=== PATIENT | female | born 1990 | race Two or more races ===

== ENCOUNTER 2017-11-29 14:23 | Emergency (ER) | payer SELFPAY ==
[~2017-11-29] VITALS: Ht 154.9 cm; Wt 59.9 kg
[2017-11-29 14:30] VITALS: BP 106/68
--- NOTE | 2017-11-29 14:30 | NUR ---
EPIGASTRIC PAIN SINCE SUNDAY. NAD NOTED. PT AAO X4, AMB WITH STEADY GAIT. RR EVEN AND UNLABORED. MIC. AT BEDSIDE FOR EVAL.
[2017-11-29] MEDS ORDERED: FAMOTIDINE (20 MG) 20 MG TABLET ONE (15:11)
[2017-11-29] MEDS ORDERED: MAG HYDROX/AL HYDROX/SIMETH 30 ML UDC ONE (15:11)
[2017-11-29 15:17] LABS: BASOPHILS % (AUTO) 0.3 % (0.0-2.0); EOSINOPHILS % (AUTO) 1.1 % (0.0-6.0); HEMATOCRIT 38 % (33-45); HEMOGLOBIN 13.5 g/dL (11.5-14.8); LYMPHOCYTES # (AUTO) 1.7 /CMM (0.8-4.8); LYMPHOCYTES % (AUTO) 21.6 % (20.0-44.0); MEAN CORPUSCULAR HEMOGLOBIN 33 PG (26.0-33.0); MEAN CORPUSCULAR HGB CONC 36 g/dl (31.0-36.0); MEAN CORPUSCULAR VOLUME 91 fL (82-100); MONOCYTES # (AUTO) 0.5 /CMM (0.1-1.30); MONOCYTES % (AUTO) 6.6 % (2.0-12.0); NEUTROPHILS # (AUTO) 5.6 /CMM (1.8-8.9); NEUTROPHILS % (AUTO) 70.4 % (43.0-81.0); PLATELET COUNT (AUTO) 184 /CMM (150-450); RDW COEFFICIENT OF VARIATION 11.3 (11.5-15.0); RED BLOOD CELL COUNT(AUTO) 4.13 MIL/uL (4.0-5.2); WHITE BLOOD COUNT (AUTO) 7.9 K/uL (4.3-11.0)
[2017-11-29 15:24] LABS: CALCIUM, SERUM 9.3 mg/dL (8.5-10.1); CREATININE 0.7 mg/dL (0.6-1.3); POTASSIUM 4.1 mmol/L (3.5-5.1)
[2017-11-29 15:30] LABS: ALBUMIN 3.7 g/dL (3.4-5.0); BILIRUBIN,DIRECT 0.1 mg/dL (0.0-0.2); BILIRUBIN,TOTAL 0.3 mg/dL (0.2-1.0)
[2017-11-29] MEDS ORDERED: MAG HYDROX/AL HYDROX/SIMETH 30 ML UDC PO ONE (15:30)
[2017-11-29] MEDS ORDERED: FAMOTIDINE (20 MG) 20 MG TABLET PO ONE (15:30)
== END 2017-11-29 15:59 | disposition home or self-care (01) ==
LOC: ER 14:39
DX: R10.13 Epigastric pain (principal)
CPT/HCPCS: 36415; 80048; 80076; 83690; 84703; 85025; 99284; A4606; Z7610

== ENCOUNTER 2017-11-30 05:25 | Emergency (ER) | payer SELFPAY ==
[~2017-11-30] VITALS: Ht 154.9 cm; Wt 59.9 kg
[2017-11-30] MEDS ORDERED: ONDANSETRON HCL/PF 4 MG/2 ML VIAL ONE ×2 (06:16→07:55)
[2017-11-30] MEDS ORDERED: PANTOPRAZOLE 40 MG VIAL ONE (06:16)
[2017-11-30] MEDS ORDERED: MAG HYDROX/AL HYDROX/SIMETH 30 ML UDC ONE (06:16)
--- NOTE | 2017-11-30 06:25 | NUR ---
pt bb mother from home c/o of generalized abd pain 01/04 since sunday. -n/v, +d. skin wnl. vss. -dysuria. pt safety and comfort measures in place. no s/s of acute distress noted. pt placed on monitor and pox. md bedside for eval. urine and blood sample collected and sent to lab.
[2017-11-30] MEDS ORDERED: ONDANSETRON HCL/PF 4 MG/2 ML VIAL IVP ONE (06:30)
[2017-11-30] MEDS ORDERED: IV NS 0.9% 1,000 ML BAG IV ONE (06:30)
[2017-11-30] MEDS ORDERED: MAG HYDROX/AL HYDROX/SIMETH 30 ML UDC PO ONE (06:30)
[2017-11-30] MEDS ORDERED: PANTOPRAZOLE 40 MG VIAL IV ONE (06:30)
[2017-11-30 06:35] LABS: BASOPHILS % (AUTO) 0.3 % (0.0-2.0); EOSINOPHILS % (AUTO) 1.3 % (0.0-6.0); HEMATOCRIT 45 % (33-45); HEMOGLOBIN 15.4 g/dL (11.5-14.8); LYMPHOCYTES # (AUTO) 1.5 /CMM (0.8-4.8); MEAN CORPUSCULAR HEMOGLOBIN 32 PG (26.0-33.0); MEAN CORPUSCULAR HGB CONC 34 g/dl (31.0-36.0); MEAN CORPUSCULAR VOLUME 94 fL (82-100); MONOCYTES # (AUTO) 0.7 /CMM (0.1-1.30); MONOCYTES % (AUTO) 8.4 % (2.0-12.0); NEUTROPHILS # (AUTO) 5.7 /CMM (1.8-8.9); PLATELET COUNT (AUTO) 221 /CMM (150-450); RDW COEFFICIENT OF VARIATION 11.8 (11.5-15.0); RED BLOOD CELL COUNT(AUTO) 4.83 MIL/uL (4.0-5.2)
[2017-11-30 06:38] LABS: APPEARANCE,URINE CLEAR (CLEAR); BILIRUBIN,URINE NEGATIVE (NEGATIVE); BLOOD, URINE NEGATIVE Ery/uL (NEGATIVE); COLOR,URINE YELLOW (YELLOW); KETONES,URINE NEGATIVE (NEGATIVE); LEUKOCYTE ESTERASE ,URINE NEGATIVE (NEGATIVE); NITRITE, URINE NEGATIVE (NEGATIVE); PROTEIN,URINE NEGATIVE (NEGATIVE); UGLUCOSE NEGATIVE (NEGATIVE); UROBILINOGEN,URINE 0.2 EU/dL (0.2)
[2017-11-30 06:50] LABS: ALBUMIN 4.3 g/dL (3.4-5.0); BILIRUBIN,DIRECT 0.1 mg/dL (0.0-0.2); BILIRUBIN,TOTAL 0.5 mg/dL (0.2-1.0); CALCIUM, SERUM 9.4 mg/dL (8.5-10.1); CREATININE 0.8 mg/dL (0.6-1.3); TOTAL PROTEIN, SERUM 8.3 g/dL (6.4-8.2)
[2017-11-30] MEDS ORDERED: MORPHINE SULFATE INJ 4 MG/ML DISP.SYRIN ONE (07:51)
[2017-11-30] MEDS ORDERED: MORPHINE SULFATE INJ 2 MG/ML DISP.SYRIN IV ONE (08:00)
[2017-11-30] MEDS ORDERED: IV NS 0.9% 250 ML IV ONE (08:04)
[2017-11-30] MEDS ORDERED: CT SWABBABLE VALVE TRANS SET 1 EA INFUS.SET MC ONE (08:04)
[2017-11-30] MEDS ORDERED: IOHEXOL-300 100 ML VIAL IV ONE (08:04)
[2017-11-30] MEDS ORDERED: ONDANSETRON HCL/PF 4 MG/2 ML VIAL IV ONE (08:30)
--- NOTE | 2017-11-30 08:58 | NUR ---
IV removed. Catheter intact and site benign. Pressure and 4x4 applied to site. No bleeding noted.
--- NOTE | 2017-11-30 08:58 | NUR ---
Patient discharged to home in stable condition. Written and verbal after care instructions given. Patient verbalizes understanding of instruction.
[2017-11-30 09:00] VITALS: BP 108/59
== END 2017-11-30 09:01 | disposition home or self-care (01) ==
LOC: ER 05:27
DX: A08.39 Other viral enteritis (principal)
CPT/HCPCS: 36415; 74177; 76700; 80048; 80076; 81001; 83690; 84703; 85025; 96374; 96375; 96376; 99285; A4606; C9113; J2270; J2405 ×2; J7030; J7050; Q9967; Z7610; 81000-TC

== ENCOUNTER 2018-09-19 17:19 | Emergency (ER) | payer SELFPAY ==
[~2018-09-19] VITALS: Ht 154.9 cm; Wt 61.7 kg
[2018-09-19 17:30] VITALS: BP 110/65
[2018-09-19] MEDS ORDERED: ACETAMINOPHEN ES 500 MG TABLET ONE (17:55)
[2018-09-19] MEDS ORDERED: ONDANSETRON 4 MG TAB.RAPDIS ONE (17:55)
[2018-09-19] MEDS ORDERED: MAG HYDROX/AL HYDROX/SIMETH 30 ML UDC ONE (17:56)
[2018-09-19] MEDS ORDERED: FAMOTIDINE (20 MG) 20 MG TABLET ONE (17:56)
[2018-09-19] MEDS ORDERED: MAG HYDROX/AL HYDROX/SIMETH 30 ML UDC PO ONE (18:00)
[2018-09-19] MEDS ORDERED: FAMOTIDINE (20 MG) 20 MG TABLET PO ONE (18:00)
[2018-09-19] MEDS ORDERED: ACETAMINOPHEN ES 500 MG TABLET PO ONE (18:00)
[2018-09-19] MEDS ORDERED: ONDANSETRON 4 MG TAB.RAPDIS PO ONE (18:00)
[2018-09-19 18:01] LABS: BASOPHILS % (AUTO) 0.5 % (0.0-2.0); EOSINOPHILS % (AUTO) 1.7 % (0.0-6.0); HEMATOCRIT 38 % (33-45); HEMOGLOBIN 13.1 g/dL (11.5-14.8); LYMPHOCYTES # (AUTO) 2.4 /CMM (0.8-4.8); LYMPHOCYTES % (AUTO) 38.6 % (20.0-44.0); MEAN CORPUSCULAR HGB CONC 34 g/dl (31.0-36.0); MEAN CORPUSCULAR VOLUME 93 fL (82-100); MONOCYTES # (AUTO) 0.5 /CMM (0.1-1.30); MONOCYTES % (AUTO) 8.1 % (2.0-12.0); NEUTROPHILS # (AUTO) 3.2 /CMM (1.8-8.9); NEUTROPHILS % (AUTO) 51.1 % (43.0-81.0); PLATELET COUNT (AUTO) 204 /CMM (150-450); WHITE BLOOD COUNT (AUTO) 6.3 K/uL (4.3-11.0)
[2018-09-19 18:01] LABS: APPEARANCE,URINE Clear (CLEAR); BILIRUBIN,URINE Negative (NEGATIVE); BLOOD, URINE Negative Ery/uL (NEGATIVE); COLOR,URINE Yellow (YELLOW); KETONES,URINE Negative (NEGATIVE); LEUKOCYTE ESTERASE ,URINE Negative (NEGATIVE); NITRITE, URINE Negative (NEGATIVE); PH,URINE 5.5 (5.0-8.0); PROTEIN,URINE Negative (NEGATIVE); UGLUCOSE Negative (NEGATIVE); UROBILINOGEN,URINE 0.2 EU/dL (0.2)
[2018-09-19 18:08] LABS: CREATININE 0.8 mg/dL (0.6-1.3)
[2018-09-19 18:14] LABS: ALBUMIN 3.9 g/dL (3.4-5.0); BILIRUBIN,DIRECT 0.1 mg/dL (0.0-0.2); BILIRUBIN,TOTAL 0.2 mg/dL (0.2-1.0)
--- NOTE | 2018-09-19 19:02 | NUR ---
Nurse Knowledge Exchange w/ Brenda for continuity of care No Acute changes.
== END 2018-09-19 19:23 | disposition home or self-care (01) ==
LOC: ER 17:20
DX: R10.13 Epigastric pain (principal); F45.8 Other somatoform disorders; F10.10 Alcohol abuse, uncomplicated; Y90.9 Presence of alcohol in blood, level not specified
CPT/HCPCS: 36415; 70360; 80048; 80076; 81001; 84703; 85025; 99284; Q0162; 81000-TC

== ENCOUNTER 2020-02-03 20:16 | Emergency (ER) | payer SELFPAY ==
[~2020-02-03] VITALS: Ht 154.9 cm; Wt 62.1 kg
--- NOTE | 2020-02-03 20:37 | NUR ---
URINE SENT TO LAB
--- NOTE | 2020-02-03 20:39 | NUR ---
PT AAOX4. BIBSELF C/O DYSURIA X3 DAYS. STATED SHE HAS BEEN HAVING A FEVER WHOCH SHE TOOK TYLENOL FOR BUT DID NOT HELP. PROVIDED URINE SAMPLE. SENT TO LAB.
--- NOTE | 2020-02-03 20:42 | NUR ---
RAMÓN PICHARDO AT BED SIDE
[2020-02-03 20:44] LABS: APPEARANCE,URINE Clear (CLEAR); BILIRUBIN,URINE Negative (NEGATIVE); BLOOD, URINE Negative Ery/uL (NEGATIVE); COLOR,URINE Yellow (YELLOW); KETONES,URINE 15 (NEGATIVE); LEUKOCYTE ESTERASE ,URINE Trace (NEGATIVE); NITRITE, URINE Negative (NEGATIVE); PROTEIN,URINE Negative (NEGATIVE); UGLUCOSE Negative (NEGATIVE)
[2020-02-03 20:46] LABS: BACTERIA,URINE Few /HPF (None Seen); RBC,URINE NONE SEEN /HPF (0-2); SQUAMOUS EPITHELIAL CELL,UR Few /HPF (None Seen)
[2020-02-03] MEDS ORDERED: IBUPROFEN 600 MG TABLET ONE (20:50)
[2020-02-03] MEDS ORDERED: IBUPROFEN 600 MG TABLET PO ONE (21:00)
[2020-02-03] MEDS ORDERED: LIDOCAINE /MPF 1% VIAL 5 ML VIAL ONE (21:07)
[2020-02-03] MEDS ORDERED: CEFTRIAXONE 1 G VIAL ONE (21:07)
[2020-02-03 21:22] VITALS: BP 122/75
--- NOTE | 2020-02-03 21:22 | NUR ---
Patient discharged to home in stable condition. Written and verbal after care instructions given. Patient verbalizes understanding of instruction and RX. Pt ambulated with steady gait. vss.
[2020-02-03] MEDS ORDERED: CEFTRIAXONE 1 G VIAL IM ONE (21:30)
== END 2020-02-03 21:23 | disposition home or self-care (01) ==
LOC: ER 20:19
DX: N39.0 Urinary tract infection, site not specified (principal)
CPT/HCPCS: 81001; 84703; 96372; 99283; J0696; J3490; 81000-TC

== ENCOUNTER 2021-04-18 21:33 | Emergency (ER) | payer SELFPAY ==
[~2021-04-18] VITALS: Ht 157.5 cm; Wt 59.0 kg
--- NOTE | 2021-04-18 21:39 | NUR ---
BIBS FOR C/O FEELING OF HAVING AN OBJECT STUCK IN HER THROAT X 1 WEEK
[2021-04-18] MEDS ORDERED: LIDOCAINE VISCOUS 2% UD 15 ML UDC ONE (22:50)
[2021-04-18] MEDS ORDERED: MAG HYDROX/AL HYDROX/SIMETH 30 ML UDC ONE (22:50)
[2021-04-18] MEDS: LIDOCAINE VISCOUS 2% UD 15 ML UDC MM ONE (22:53)
[2021-04-18] MEDS: MAG HYDROX/AL HYDROX/SIMETH 30 ML UDC PO ONE (22:53)
[2021-04-18] MEDS ORDERED: FAMOTIDINE (20 MG) 20 MG TABLET ONE (23:01)
[2021-04-18] MEDS: FAMOTIDINE (20 MG) 20 MG TABLET PO ONE (23:03)
[2021-04-19] MEDS ORDERED: ESOM20CA PO (00:04)
--- NOTE | 2021-04-19 00:30 | NUR ---
Patient discharged to home in stable condition. Written and verbal after care instructions given. Patient verbalizes understanding of instruction.
[2021-04-19 00:31] VITALS: BP 126/73
== END 2021-04-19 00:31 | disposition home or self-care (01) ==
LOC: ER 21:36
DX: F45.8 Other somatoform disorders (principal)
CPT/HCPCS: 70360-TC

== ENCOUNTER 2023-03-30 03:38 | Emergency (ER) | payer SELFPAY ==
[~2023-03-30 03:38] MED LIST: ESOM20CA PO
== END 2023-03-30 04:16 | disposition left against medical advice (07) ==
LOC: ER 03:52
DX: A05.9 Bacterial foodborne intoxication, unspecified (principal); Z53.21 Procedure and treatment not carried out due to patient leaving prior to being seen by health care provider